=== PATIENT | female | born 1995 | race Caucasian/White ===

== ENCOUNTER 2017-01-12 23:46 | Emergency (ER) | payer MEDICAID, OTHER ==
[2017-01-12 23:59] VITALS: TEMP 98.2
--- NOTE | 2017-01-12 23:59 | EDPHY ---
H & P Time Seen by Provider: 01/12/17 23:47 HPI/ROS: Chief complaint: Head injury, worsening headache HPI: 20-year-old female has slip and fall on the ice, landing on her back. Patient states she struck her head and was certainly dazed and is uncertain if she had a loss of consciousness. She has had a steadily worsening frontal headache for the last 2 hours. This fall happened at about 4 hours ago. Some nausea, no vomiting. States her head is feeling foggy as well. No nausea or vomiting. No neck pain. No numbness or tingling. She is also complaining of a little bit of buttocks pain. Patient states she took ibuprofen about 2 hours ago with no significant relief. ROS: 10 point Review of Systems is negative except as noted in the HPI. Past medical history: Depression and chronic pain Allergies: Vicodin Physical exam: Gen: Awake, Alert, uncomfortable appearing HEENT: There is no tenderness in the occiput, no swelling, no erythema, no step- offs Nose: no rhinorrhea Eyes: PERRLA, EOMI Mouth: Moist mucosa Neck: Supple, no JVD, no midline tenderness, full range of motion without pain Chest: nontender, lungs clear to auscultation Heart: S1, S2 normal, no murmur Abd: Soft, non-tender, no guarding Back: no CVA tenderness, no midline tenderness Ext: no edema, non-tender Skin: no rash Neuro: CN II-XII intact, Sensation grossly intact, Strength 5/5 in bilateral upper and lower extremities - Medical/Surgical History Hx Asthma: Yes Hx Chronic Respiratory Disease: No Hx Diabetes: No Hx Cardiac Disease: No Hx Renal Disease: No Hx Cirrhosis: No Hx Alcoholism: No Hx HIV/AIDS: No Hx Splenectomy or Spleen Trauma: No Other PMH: asthma - Social History Smoking Status: Never smoked Constitutional: Initial Vital Signs Temperature (C) 36.8 C 01/12/17 23:58 Heart Rate 70 01/12/17 23:58 Respiratory Rate 20 01/12/17 23:58 Blood Pressure 161/81 H 01/12/17 23:58 O2 Sat (%) 98 01/12/17 23:58 O2 Delivery Mode Room Air Allergies/Adverse Reactions: hydrocodone bitartrate [From Vicodin] Allergy (Verified 09/25/16 23:04) Home Medications: Medication Instructions Recorded LAMOTRIGINE 01/13/17 Montelukast Sodium 01/13/17 Plaquenil 200 mg (*) 01/13/17 buPROPion 01/13/17 Medical Decision Making - Diagnostics Imaging: CT scan of the head is negative per Dr. Kelly. ED Course/Re-evaluation: 21-year-old status post head injury. She had a questionable loss of consciousness, this was not witnessed. She is presenting now with worsening headache for the last 2 hours. She is also feeling a little bit more lethargic. For this reason I am getting a CT scan of her brain to rule out acute intracranial bleed. CT scan of the head is negative. Patient is feeling somewhat improved. Will discharge to home with follow-up with primary care doctor. - Data Points Medications Given: Discontinued Medications Acetaminophen (Tylenol) 1,000 mg PO EDNOW ONE Stop: 01/13/17 00:24 Last Admin: 01/13/17 00:25 Dose: 1,000 mg Departure - Departure Disposition: Home, Routine, Self-Care Clinical Impression: Head injury Condition: Good Instructions: Head Injury (ED) Additional Instructions: Return emergency depart for increasing pain, nausea, vomiting, numbness, tingling, or any other concerns. Follow up with primary care doctor in 3-4 days for re-evaluation for any concerns. Referrals: Patient,NotPresent [Primary Care Provider] - As per Instructions
[2017-01-13] MEDS ORDERED: ACETAMINOPHEN 500 MG TAB PO ONE (00:23)
[2017-01-13] MEDS ORDERED: ACETAMINOPHEN 500 MG TAB ONE (00:24)
[2017-01-13 01:47] VITALS: BP 109/78; PULSE 74; RESP 18; O2SAT 97
== END 2017-01-13 01:23 | disposition home or self-care (01) ==
LOC: EDUNIT#
DX: S09.90XA Unspecified injury of head, initial encounter (principal); J45.909 Unspecified asthma, uncomplicated; W00.0XXA Fall on same level due to ice and snow, initial encounter

== ENCOUNTER 2017-03-11 08:45 | Emergency (ER) | payer OTHER ==
--- NOTE | 2017-03-11 08:44 | EDPHY ---
HPI/HX/ROS/PE/MDM Narrative: CHIEF COMPLAINT: Neck pain. HPI: This patient is a 22 y/o female with history of anxiety and chronic pain arriving today via EMS complaining of sudden onset left lateral neck pain. Per EMS, the pain began with no provocation while the patient was at [employer] waiting to go to work this morning. EMS reports she was particularly anxious on scene, so they administered 5mg Valium. This improved her anxiety, but the patient reports her neck is still hurting. She cannot identify any preceding trauma or event and reports she felt normal upon waking this morning. She states she is having spasms in her left neck and pain radiates to her left shoulder. Patient denies vision changes, weakness, paresthesias, and fever. REVIEW OF SYSTEMS: Aside from elements discussed in the HPI, a comprehensive 10- point review of systems was reviewed and is negative. PMH: Depression, chronic pain, asthma, anxiety. I reviewed previous medical records, including ED visits from 01/12/17 and . SOCIAL HISTORY: Homeless. Works at [employer]. Medicaid patient. PHYSICAL EXAM: General:Patient is alert, in no acute distress. Appears comfortable, talking on her cellphone. ENT:Eyes are normal to inspection. ENT inspection normal. Neck: Mild tenderness to left paraspinous muscles. No carotid bruit. Respiratory:No respiratory distress. Breath sounds normal bilaterally. Cardiovascular: Regular rate and rhythm. Strong peripheral pulses. Normal cap refill. Abdomen:The abdomen is nontender to palpation. There are no peritoneal signs. Back: Normal to inspection. No tenderness to palpation. Skin: Normal color. No rash. Warm and dry. Extremities: Normal appearance. Full range of motion. Neuro: Oriented x3. Normal motor function. Normal sensory function. No pronator drift. Face symmetric. Normal speech. ED Course: The patient is a 22 y/o female presenting with acute onset atraumatic left lateral neck pain and anxiety this morning. She has a history of chronic pain and anxiety. Mild left cervical paraspinous muscle tenderness noted on exam. She is neurovascularly intact and afebrile. Notably, when providers are not in the room, she is sitting up and talking on her cellphone comfortably. Plan for 30mg IV Toradol for pain and cervical spine x-ray to rule out acute osseous abnormality. Cervical spine x-ray is unremarkable. I reevaluated the patient, discussed imaging results, and offered CT imaging, which she declined. She remains neurovascularly intact. We discussed discharge instructions and return precautions. She is comfortable with this plan. MDM: This is a young female who presents with atraumatic lateral neck pain. She has no neurologic findings on exam and seems quite comfortable, talking on phone in exam room. I discussed potential etiologies and options with her and she would like to refuse CT imaging/angio at this time. This appears to most likely represent a musculoskeletal issue. I have low suspicion for vessel dissection or spinal cord disease. Patient understands I am unable to rule out potentially life-threatening conditions without further testing. We discussed strict return precautions. - Data Points Imaging Results: Imaging Impressions Cervical Spine X-Ray 03/11/17 09:02 Impression: Normal limited cervical spine series. Imaging: I viewed and interpreted images myself Medications Given: Discontinued Medications Cyclobenzaprine HCl (Flexeril) 10 mg PO EDNOW ONE Stop: 03/11/17 10:03 Last Admin: 03/11/17 10:06 Dose: 10 mg Ketorolac Tromethamine (Toradol) 30 mg IVP EDNOW ONE Stop: 03/11/17 09:03 Last Admin: 03/11/17 09:22 Dose: 30 mg General Initial Vital Signs: Initial Vital Signs Temperature (C) 36.6 C 03/11/17 08:45 Heart Rate 68 03/11/17 08:45 Respiratory Rate 18 03/11/17 08:45 Blood Pressure 125/87 H 03/11/17 08:45 O2 Sat (%) 96 03/11/17 08:45 O2 Delivery Mode Room Air Allergies/Adverse Reactions: hydrocodone bitartrate [From Vicodin] Allergy (Verified 09/25/16 23:04) Home Medications: Medication Instructions Recorded Cyclobenzaprine [Flexeril] 10 mg PO TID #10 tab 03/11/17 Departure - Departure Disposition: Home, Routine, Self-Care Clinical Impression: Neck pain on left side Condition: Good Instructions: Cyclobenzaprine (By mouth), Neck Pain (ED) Additional Instructions: 1. Take Flexeril as prescribed when needed for pain. 2. You can also try applying ice or heating pad to the sore areas. 3. Follow up with your primary care provider as needed for symptoms unimproved over the next 2-3 days. 4. Return to the ED for worsening of condition. Referrals: Patient,NotPresent [Unknown] - As per Instructions [facility],. [Clinic] - As per Instructions Prescriptions: Cyclobenzaprine [Flexeril] 10 mg PO TID #10 tab Report Scribed for: Raghu Salinas Report Scribed by: Rachael Snell Date of Report: 03/11/17 Time of Report: 09:30 Physician Review and Approval Statement: Portions of this note were transcribed by an ED scribe. I personally performed the history, physical exam, and medical decision making; and confirm the accuracy of the information in the transcribed note.
[2017-03-11 08:57] VITALS: RESP 18
[2017-03-11] MEDS ORDERED: KETOROLAC 30 MG/1 ML SDV IVP ONE (09:02)
[2017-03-11] MEDS ORDERED: CYCLOBENZAPRINE 10 MG TAB PO ONE (10:02)
[2017-03-11 10:37] VITALS: BP 126/81; PULSE 62; TEMP 97.7; O2SAT 99
== END 2017-03-11 10:37 | disposition home or self-care (01) ==
LOC: EDUNIT#
DX: M54.2 Cervicalgia (principal); J45.909 Unspecified asthma, uncomplicated
CPT/HCPCS: 96374; J1885

== ENCOUNTER 2017-05-18 17:05 | Emergency (ER) | payer OTHER ==
--- NOTE | 2017-05-18 18:36 | EDPHY ---
H & P Stated Complaint: "Pinched nerve feeling" R side of neck Time Seen by Provider: 05/18/17 18:29 HPI/ROS: HPI CHIEF COMPLAINT: Right lateral neck pain atraumatic HISTORY OF PRESENT ILLNESS: This patient 22-year-old female, homeless, significant past medical history for chronic pain, presents emergency room with 24 hours of neck pain. Patient denies any trauma or injury. She states that it hurts to turn her head to the left and has difficulty turning all the way due to pain on the right side of her neck. It is better when she turns her head towards the area of pain. She denies trouble swelling, denies fever, denies trauma. States she has had this before few months ago got better with anti- inflammatory pain medicine. She denies arm weakness, focal numbness or tingling , pain shooting into her arm. The pain is localized to right neck. Sternocleidomastoid region. Denies headache. Past Medical History: Homeless, chronic pain Past Surgical History: Denies recent surgery Social History: Denies drugs or alcohol. Family History: Noncontributory ROS REVIEW OF SYSTEMS: A comprehensive 10 point review of systems is otherwise negative aside from elements mentioned in the history of present illness. Exam Constitutional triage nursing summary reviewed, vital signs reviewed, awake/ alert. Eyes normal conjunctivae and sclera, EOMI, PERRLA. HENT neck exam: No bruit, no midline cervical spine pain, good lombardi developer strength of the right upper extremity and left upper extremity. Tenderness palpation down the right lateral neck sternocleidomastoid region. No meningeal signs. normal inspection, atraumatic, moist mucus membranes, no epistaxis, no raccoon eyes. Respiratory clear to auscultation bilaterally, normal breath sounds, no respiratory distress, no wheezing. Cardiovascular rate normal, regular rhythm, no murmur, no edema, distal pulses normal. Gastrointestinal soft, non-tender, no rebound, no guarding, normal bowel sounds, no distension, no pulsatile mass. Genitourinary no CVA tenderness. Musculoskeletal no midline vertebral tenderness, full range of motion, no calf swelling, no tenderness of extremities, no meningismus, good pulses, neurovascularly intact. Skin pink, warm, & dry, no rash, skin atraumatic. Neurologic awake, alert and oriented x 3, AAOx3, moves all 4 extremities equally, motor intact, sensory intact, CN II-XII intact, normal cerebellar, normal vision, normal speech. Psychiatric normal mood/affect. Heme/Lymph/Immune no lymphadenopathy. Differential Diagnosis: Includes but is not limited to in a particular order, torticollis, neck spasm, musculoskeletal injury, disc disease, fracture Medical Decision Making: Plan for this patient ibuprofen 800 mg here, Valium for muscle spasms, CT cervical spine. Clinically feel that she has torticollins. Re-evaluation: CT scan of the cervical spine without IV contrast The results of the study are negative for acute traumatic abnormality or significant malalignment or fracture The study was read by Dr. Kelly I viewed the images myself on the PACS system. 2054: I discussed this patient's CT results with her. Unremarkable CT cervical spine. No malalignment of significant traumatic injury. Will place on ibuprofen and Valium. Recommend cool ice packs. Follow up with primary care doctor return emergency room if there is worsening symptoms questions or concerns she understands clinically I feel she has torticollis. Source: Patient - Personal History LMP (Females 10-55): 15-21 Days Ago - Medical/Surgical History Hx Asthma: Yes Hx Chronic Respiratory Disease: No Hx Diabetes: No Hx Cardiac Disease: No Hx Renal Disease: No Hx Cirrhosis: No Hx Alcoholism: No Hx HIV/AIDS: No Hx Splenectomy or Spleen Trauma: No Other PMH: asthma, anxiety and bipolar. chronic pain, arthritis - Social History Smoking Status: Never smoked Constitutional: Initial Vital Signs Temperature (C) 36.6 C 05/18/17 17:28 Heart Rate 89 05/18/17 17:28 Respiratory Rate 18 05/18/17 17:28 Blood Pressure 137/94 H 05/18/17 17:28 O2 Sat (%) 98 05/18/17 17:28 O2 Delivery Mode Room Air Allergies/Adverse Reactions: hydrocodone bitartrate [From Vicodin] Allergy (Verified 05/18/17 17:27) Home Medications: Medication Instructions Recorded Diazepam [Valium 5 MG (*)] 5 mg PO TID PRN #10 tab 05/18/17 Ibuprofen [Motrin (*)] 800 mg PO Q6-8PRN #7 tab 05/18/17 Medical Decision Making - Data Points Medications Given: Discontinued Medications Diazepam (Valium) 2 mg PO EDNOW ONE Stop: 05/18/17 19:01 Last Admin: 05/18/17 19:29 Dose: 2 mg Ibuprofen (Motrin) 800 mg PO EDNOW ONE Stop: 05/18/17 19:01 Last Admin: 05/18/17 19:29 Dose: 800 mg Departure - Departure Disposition: Home, Routine, Self-Care Clinical Impression: Torticollis Condition: Good Instructions: Spasmodic Torticollis (ED) Additional Instructions: 1. Ice your neck. 2. Return emergency room if develops worsening symptoms includes worsening pain questions or concerns Referrals: [facility] [Other] - As per Instructions Prescriptions: Diazepam [Valium 5 MG (*)] 5 mg PO TID PRN #10 tab PRN Reason: Spasms Ibuprofen [Motrin (*)] 800 mg PO Q6-8PRN #7 tab
[2017-05-18] MEDS ORDERED: DIAZEPAM 2 MG TAB PO ONE (19:00)
[2017-05-18] MEDS ORDERED: IBUPROFEN 200 MG TAB PO ONE (19:00)
[2017-05-18] MEDS ORDERED: DIAZEPAM 5 MG PREPACK#4 BTL TAKEHOME ONE ×2 (21:00→21:04)
[2017-05-18 21:11] VITALS: BP 117/68; PULSE 80; RESP 16; TEMP 98.4; O2SAT 94
== END 2017-05-18 21:11 | disposition home or self-care (01) ==
DX: M43.6 Torticollis (principal); J45.909 Unspecified asthma, uncomplicated

== ENCOUNTER 2018-01-15 23:42 | Emergency (ER) | payer SELFPAY ==
[2018-01-15 23:48] VITALS: O2SAT 96
--- NOTE | 2018-01-15 23:53 | EDPHY ---
H & P Stated Complaint: Depressed, SI, Source: Patient - Personal History LMP (Females 10-55): 22-28 Days Ago Current Tetanus Diphtheria and Acellular Pertussis (TDAP): Yes - Medical/Surgical History Hx Asthma: Yes Hx Chronic Respiratory Disease: No Hx Diabetes: No Hx Cardiac Disease: No Hx Renal Disease: No Hx Cirrhosis: No Hx Alcoholism: No Hx HIV/AIDS: No Hx Splenectomy or Spleen Trauma: No Other PMH: asthma, anxiety and bipolar. chronic pain, arthritis - Social History Smoking Status: Never smoked Time Seen by Provider: 01/15/18 23:50 HPI/ROS: HPI CHIEF COMPLAINT: Depression, suicidal ideation HISTORY OF PRESENT ILLNESS: This patient is a 22-year-old female she has a history of bipolar disorder, she presents emergency room by private vehicle after she asked a friend to drive her in as she has been feeling more depressed and suicidal. She has cut herself in the past. She denies any pill ingestion today or self-harm today. She has been feeling more depressed and lonely over the past week. Her family lives out of state. She states she lives alone in [place]. She is not on any medications. Past Medical History: Bipolar disorder, depression, anxiety Past Surgical History: Denies Social History: Substance abuse including marijuana and alcohol. Family History: Resides at a state. ROS REVIEW OF SYSTEMS: A comprehensive 10 point review of systems is otherwise negative aside from elements mentioned in the history of present illness. Exam Constitutional triage nursing summary reviewed, vital signs reviewed, awake/ alert. Eyes normal conjunctivae and sclera, EOMI, PERRLA. HENT normal inspection, atraumatic, moist mucus membranes, no epistaxis, neck supple/ no meningismus, no raccoon eyes. Respiratory clear to auscultation bilaterally, normal breath sounds, no respiratory distress, no wheezing. Cardiovascular rate normal, regular rhythm, no murmur, no edema, distal pulses normal. Gastrointestinal soft, non-tender, no rebound, no guarding, normal bowel sounds, no distension, no pulsatile mass. Genitourinary no CVA tenderness. Musculoskeletal no midline vertebral tenderness, full range of motion, no calf swelling, no tenderness of extremities, no meningismus, good pulses, neurovascularly intact. Skin pink, warm, & dry, no rash, skin atraumatic. Neurologic awake, alert and oriented x 3, AAOx3, moves all 4 extremities equally, motor intact, sensory intact, CN II-XII intact, normal cerebellar, normal vision, normal speech. Psychiatric depressed, flat affect. Heme/Lymph/Immune no lymphadenopathy. Differential Diagnosis: Includes but is not limited to in a particular order worsening depression, suicidal ideation, mood disorder, bipolar disorder, substance abuse Medical Decision Making: Plan for this patient blood draw for medical clearance. Drug screen, patient be placed on M1 hold by myself. And patient need mental health evaluation. Re-evaluation: 1202AM: time of m1 hold placement. 0642AM: Signed over to Dr. Salinas. (Yusef Small) Constitutional: Initial Vital Signs Temperature (C) 36.6 C 01/15/18 23:46 Heart Rate 93 01/15/18 23:46 Respiratory Rate 20 01/15/18 23:46 Blood Pressure 128/94 H 01/15/18 23:46 O2 Sat (%) 96 01/15/18 23:46 O2 Delivery Mode Room Air Allergies/Adverse Reactions: hydrocodone bitartrate [From Vicodin] Allergy (Verified 01/15/18 23:45) Home Medications: Medication Instructions Recorded Diazepam [Valium 5 MG (*)] 5 mg PO TID PRN #10 tab 05/18/17 Ibuprofen [Motrin (*)] 800 mg PO Q6-8PRN #7 tab 05/18/17 Medical Decision Making Other Provider: Spoke with Chevy from [facility]. Patient accepted at [facility] by NAOMY Cesar. She remained stable over course of my shift. (Raghu Salinas) - Data Points Laboratory Results: Laboratory Results 01/16/18 00:05 01/16/18 00:05 Departure - Departure Disposition: Other Psych, Not [place] Clinical Impression: Depression Qualifiers: Depression Type: major depressive disorder Major depression recurrence: single episode Active/Remission status: currently active Major depression episode severity: moderate Qualified Code(s): F32.1 - Major depressive disorder, single episode, moderate Condition: Fair Referrals: NONE *PRIMARY CARE P,. [Primary Care Provider] - As per Instructions
[2018-01-16 00:16] LABS: PLATELET COUNT 333 10^3/uL (150-400)
[2018-01-16 06:20] VITALS: RESP 16
[2018-01-16 12:03] VITALS: BP 141/90; PULSE 89; TEMP 98.2
== END 2018-01-16 12:01 ==
DX: F32.1 Major depressive disorder, single episode, moderate (principal); J45.909 Unspecified asthma, uncomplicated
CPT/HCPCS: 80305; G0480

== ENCOUNTER 2018-02-03 11:31 | Emergency (ER) | payer SELFPAY ==
[2018-02-03 11:48] VITALS: BP 146/89; PULSE 81; RESP 18; TEMP 98.1; O2SAT 98
--- NOTE | 2018-02-03 12:17 | EDPHY ---
H & P Stated Complaint: M1 Time Seen by Provider: 02/03/18 11:37 - Personal History LMP (Females 10-55): 8-14 Days Ago Current Tetanus/Diphtheria Vaccine: Yes Current Tetanus Diphtheria and Acellular Pertussis (TDAP): Yes - Medical/Surgical History Hx Asthma: Yes Hx Chronic Respiratory Disease: No Hx Diabetes: No Hx Cardiac Disease: No Hx Renal Disease: No Hx Cirrhosis: No Hx Alcoholism: No Hx HIV/AIDS: No Hx Splenectomy or Spleen Trauma: No Other PMH: asthma, anxiety and bipolar. chronic pain, arthritis - Social History Smoking Status: Never smoked Constitutional: Initial Vital Signs Temperature (C) 36.7 C 02/03/18 11:44 Heart Rate 81 02/03/18 11:44 Respiratory Rate 18 02/03/18 11:44 Blood Pressure 146/89 H 02/03/18 11:44 O2 Sat (%) 98 02/03/18 11:44 O2 Delivery Mode Room Air Allergies/Adverse Reactions: hydrocodone bitartrate [From Vicodin] Allergy (Verified 01/15/18 23:45) Home Medications: Medication Instructions Recorded Diazepam [Valium 5 MG (*)] 5 mg PO TID PRN #10 tab 05/18/17 Ibuprofen [Motrin (*)] 800 mg PO Q6-8PRN #7 tab 05/18/17 Seroquel 02/03/18 Medical Decision Making ED Course/Re-evaluation: CHIEF COMPLAINT: "too much marijuana use;" needs place to live HISTORY OF PRESENT ILLNESS: The patient is a 22 y/o male with a history of bipolar disorder and anxiety requesting help finding a place to live. She says, "I can tell I have a problem and I'm trying to get into rehab, but I keep getting stuck in the inpatient loop." She says needs "to go through the whole process again" and doesn't have a place to live currently. No suicidal ideation , homicidal ideation, recent overdose or self-harm. No recent illness or trauma. REVIEW OF SYSTEMS: A 10 point review of systems was performed and is negative with the exception of the elements mentioned in the history of present illness. PHYSICAL EXAM: HR, BP, O2 Sat, RR. Temp noted General Appearance: Alert, well hydrated, appropriate, and non-toxic appearing. Head: Atraumatic without scalp tenderness or obvious injury Eyes: Pupils equal, round, reactive to light and accommodation, EOMI, no trauma , no injection. Nose: Atraumatic, no rhinorrhea, clear. Throat: Mucus membranes moist. Neck: Supple Respiratory: No retractions, no distress, no wheezes, and no accessory muscle use. Lungs are clear to auscultation bilaterally. Cardiovascular: Regular rate and rhythm, no murmurs, rubs, or gallops. Good capillary refill all extremities. Gastrointestinal: Abdomen is soft, non-tender, non-distended, no masses, no rebound, no guarding, no peritoneal signs. Musculoskeletal: Normal active ROM of all extremities, atraumatic. Neurological: Alert, appropriate, and interactive. Nonfocal. Skin: No rashes, good turgor, no nodules on palpation. PAST MEDICAL HISTORY: Asthma, bipolar disorder, anxiety PAST SURGICAL HISTORY: Denies SOCIAL HISTORY: Homeless, marijuana and cigarette use DIFFERENTIAL DIAGNOSIS: The differential diagnosis for the patient's symptoms included but was not limited to malingering, secondary gain, functional and major depression, situational depression, medication side effect, drugs, and alcohol abuse. MEDICAL DECISION MAKING: Patient does not meet criteria for M1 and I have dropped this hold. Case management will discuss resources in the area with patient prior to discharge. She has been referred to [facility] for medication refills as needed as there is nothing she needs acutely from the ED today. - Data Points Laboratory Results: 02/03/18 11:35 Urine Opiates Screen NEGATIVE (NEGATIVE) Urine Barbiturates NEGATIVE (NEGATIVE) Ur Phencyclidine Scrn NEGATIVE (NEGATIVE) Ur Amphetamine Screen NEGATIVE (NEGATIVE) U Benzodiazepines Scrn NON-NEGATIVE H (NEGATIVE) Urine Cocaine Screen NEGATIVE (NEGATIVE) U Marijuana (THC) Screen NON-NEGATIVE H (NEGATIVE) Departure - Departure Disposition: Home, Routine, Self-Care Clinical Impression: Malingering, Medication refill Condition: Good Instructions: Medicine Refill (ED) Additional Instructions: Follow up with [facility] to establish care and get medication refills. Referrals: [facility],. [Clinic] - As per Instructions Report Scribed for: Ney Man Report Scribed by: Suni Benosn Date of Report: 02/03/18 Time of Report: 12:16
--- NOTE | 2018-02-03 15:23 | ASMTCMCOM ---
CM Note CM Note Notes: Pt presented to ED via EMS for "too much marijuana" and needing a place to live. Pt denied SI/HI. ED MD Ney Man dropped pt's M1 hold and requested CM ensure pt has outpt resources. Spoke w/pt and she states she is already established w/[facility] and will follow up w/[facility] re: medications and outpt treatment for her bipolar disorder, anxiety, depression, substance abuse (pt mentioned she has a history of benzodiazepine abuse), and marijuana use. This CM still provided info re: [facility] and the hotline # to call if she wants to speak to someone. Pt states she has been staying at the local [facility] and will return there tonight. Pt asked for a few nights in a hotel, this CM explained we have very limited respite funds and the're reserved for people who meet certain medical respite criteria, which she does not. Pt informed she has been discharged and can use the phone the in the waiting area to call for a ride. Pt asked for food. This CM stated that the ED doesn't provided food unless it is necessary for continued ED medical treatment or if a patient is being admitted. This CM provided info. re:local community food tables, food pierre, etc. Pt has a cell phone and kept perseverating on whether or not we had charged it for her. Pt given her cell phone back upon discharge and informed it is charged as much as we were able to given the time she was in the ED and that the ED is not required to fully charge her cell phone. Pt's visit to the ED 09/25/16 was for similar reason related to marijuana use and homelessness. Pt here in the ED: 01/12/17, 03/11/17, 05/18/17, 01/15/18 (which resulted in her being admitted to [facility]). Pt has been referred to [facility] in the past and upon discharge today. This CM to possibly follow-up w/[facility] tomorrow to see if pt is established there and how we can all better coordinate care to reduce pt's ED visits. CM available for further assistance if needed. Date Signed: 02/03/2018 03:22 PM Electronically Signed By:Sarah Ag RN
--- NOTE | 2018-02-03 15:26 | ASDISCHSUM ---
Discharge Information Plan Status:Homeless/Custodial Medically Cleared to Leave: Discharge Date:02/03/2018 12:58 PM CM D/C Disposition:Streets (Homeless) ADT D/C Disposition:Home, Routine, Self-Care Projected Discharge Date:02/03/2018 12:58 PM Transportation at D/C:None or Unknown Discharge Delay Reason: Follow-Up Date:02/03/2018 12:58 PM Discharge Slot: Final Diagnosis: Placement Information Patient Contact Information Contact Name:DOROTHEA Relationship:Friend Address: Work Phone: City:[place] Alternate Phone: [facility]/[employer] Code: Email: Financial Information Financial Class:Self-Pay Primary Plan Desc:SELF PAY Primary Plan Number: Secondary Plan Desc: Secondary Plan Number: Assessment Information [employer] Progress Note CM Note CM Note Notes: Pt presented to ED via EMS for "too much marijuana" and needing a place to live. Pt denied SI/HI. ED MD Ney Man dropped pt's M1 hold and requested CM ensure pt has outpt resources. Spoke w/pt and she states she is already established w/[facility] and will follow up w/[facility] re: medications and outpt treatment for her bipolar disorder, anxiety, depression, substance abuse (pt mentioned she has a history of benzodiazepine abuse), and marijuana use. This CM still provided info re: [facility] Walk[facility]In Crisis center and the hotline # to call if she wants to speak to someone. Pt states she has been staying at the local long term and will return there tonight. Pt asked for a few nights in a hotel, this CM explained we have very limited respite funds and the're reserved for people who meet certain medical respite criteria, which she does not. Pt informed she has been discharged and can use the phone the in the waiting area to call for a ride. Pt asked for food. This CM stated that the ED doesn't provided food unless it is necessary for continued ED medical treatment or if a patient is being admitted. This CM provided info. re:local community food tables, food pierre, etc. Pt has a cell phone and kept perseverating on whether or not we had charged it for her. Pt given her cell phone back upon discharge and informed it is charged as much as we were able to given the time she was in the ED and that the ED is not required to fully charge her cell phone. Pt's visit to the ED 09/25/16 was for similar reason related to marijuana use and homelessness. Pt here in the ED: 01/12/17, 03/11/17, 05/18/17, 01/15/18 (which resulted in her being admitted to [facility]). Pt has been referred to [facility] in the past and upon discharge today. This CM to possibly follow-up w/[facility] tomorrow to see if pt is established there and how we can all better coordinate care to reduce pt's ED visits. CM available for further assistance if needed. Date Signed: 02/03/2018 03:22 PM Electronically Signed By:Sarah Ag RN LACE LACE Acuity / Level of Answers: No Care: Did the patient have an inpatient admission? Comorbidities - select Answers: Chronic pulmonary disease all that apply Opioid dependence / Chronic pain # of Emergency department Answers: 1-2 visits in the last 6 months Social determinants Answers: History of substance abuse (ETOH, street drugs, prescription drugs, etc.) Homelessness (street, long term) Mental health diagnosis (anxiety, depression, pers onality disorders, etc.) Lack of community resources and/or lack of social support (no pcp, lives alone, transportation, ian d) Score: 20 Date Signed: 02/03/2018 03:23 PM Electronically Signed By:Sarah Ag RN Intervention Information Intervention Type:Health Clinic Date of Service:02/03/2018 03:24 PM Patient Type:Emergency Room Staff Member:YANIQUE Ag Sharon Hours:0.25 Discipline:Liquor Merchant Severity: Comment:info on [facility], [facility] Intervention Type:Custodial Date of Service:02/03/2018 03:24 PM Patient Type:Emergency Room Staff Member:YANIQUE Ag Sharon Hours:0.25 Discipline:Liquor Merchant Severity: Comment:homeless resources including long term options, food bank, community table me al schedule
== END 2018-02-03 12:58 | disposition home or self-care (01) ==
DX: Z76.5 Malingerer [conscious simulation] (principal); J45.909 Unspecified asthma, uncomplicated; Z76.0 Encounter for issue of repeat prescription
CPT/HCPCS: 80305